=== PATIENT | male | born 1945 | race Caucasian/White ===

== ENCOUNTER 2022-03-21 15:00 | Observation (INO) ==
[2022-03-21] MEDS ORDERED: Iopamidol - 370 500 ML MLS IVP ONE (19:00)
[2022-03-21 19:28] LABS: Basophils # 0.1 K/mcL (0.0-0.2); Basophils % 0.7 %; Eosinophils % 0.3 %; Hematocrit 48.7 % (37.5-50.1); Hemoglobin 16.7 g/dL (12.9-16.9); Immature Granulocytes % 0.5 % (0-4); Lymphocytes # 1.3 K/mcL (0.6-4.6); Mean Corpuscular HGB Conc 34.3 g/dL (31.6-35.5); Mean Corpuscular Hemoglobin 33.8 pg (28.0-33.3); Mean Corpuscular Volume 98.6 fL (83.0-100.0); Mean Platelet Volume 10.1 fL (9.4-12.4); Monocytes % 7.9 %; Neutrophils # 9.6 K/mcL (1.6-8.9); Platelet Count 285 K/mcL (140-400); Red Blood Count 4.94 M/mcL (4.19-5.50); Red Cell Distribution Width 12.6 % (11.5-14.5); Segmented Neutrophils % 79.6 %; White Blood Count 12.1 K/mcL (4.3-11.1)
[2022-03-21 22:06] LABS: BUN/Creatinine Ratio 19 (6-26); Blood Urea Nitrogen 15 mg/dL (8-23); Calcium 9.1 mg/dL (8.6-10.3); Carbon Dioxide 18 mEq/L (23-29); Chloride 106 mEq/L (98-107); Glucose 89 mg/dL (70-105); Osmolality,Calculated 278 (280-300); Potassium 5.8 mEq/L (3.5-5.1); Sodium 134 mEq/L (136-145); Troponin I < 0.03 ng/mL (< 0.04)
[2022-03-21] MEDS ORDERED: Famotidine 20 MG/2 ML VIAL IVP ONE (23:59)
[2022-03-22] MEDS ORDERED: Famotidine 20 MG/2 ML VIAL IVP ONE (00:20)
[2022-03-22 00:28] LABS: INR 1.1; Prothrombin Time 11.9 Seconds (9.4-12.1)
[2022-03-22 01:43] LABS: Alanine Aminotransferase 11 Units/L (7-52); Albumin 3.3 g/dL (3.5-5.7); Albumin/Globulin Ratio 1.2 (1.1-2.2); Alkaline Phosphatase 65 Units/L (34-104); Aspartate Amino Transferase 23 Units/L (13-39); Bilirubin,Indirect 0.5 mg/dL (0.0-1.0); Bilirubin,Total 0.5 mg/dL (0.3-1.0); Globulin 2.7 g/dL (2.4-3.5); Lipase 37 Units/L (11-82)
[2022-03-22] MEDS ORDERED: Naloxone 0.4 MG/ML INJ IVP PRN (06:05)
[2022-03-22] MEDS ORDERED: Ondansetron ODT 4 MG TAB.RAPDIS SL PRN (06:05)
[2022-03-22] MEDS ORDERED: Dextrose Gel 15 GM/37.5 ML TUBE PO PRN ×2 (06:09)
[2022-03-22] MEDS ORDERED: *HR* Dextrose 50 % in Water (Syg) 50 ML SYRINGE IVP PRN (06:09)
[2022-03-22] MEDS ORDERED: D5% in Water 1,000 ML IVC PRN (06:09)
[2022-03-22] MEDS ORDERED: 0.9 % Sodium Chloride 1,000 ML IVC SCH (06:15)
[2022-03-22] MEDS ORDERED: *HR* LORazepam 1 MG TABLET PO PRN (06:47)
[2022-03-22] MEDS ORDERED: *HR* LORazepam 2 MG/ML VIAL IVP PRN ×2 (06:47)
[2022-03-22] MEDS ORDERED: Pantoprazole 40 MG VIAL IVP ONE (06:48)
[2022-03-22] MEDS ORDERED: Saliva Stimulant 44.3ml BOTTLE PO PRN (06:48)
[2022-03-22 07:24] LABS: Basophils # 0.1 K/mcL (0.0-0.2); Basophils % 0.9 %; Eosinophils # 0.2 K/mcL (0.0-0.6); Eosinophils % 1.8 %; Hematocrit 44.3 % (37.5-50.1); Hemoglobin 15.3 g/dL (12.9-16.9); Immature Granulocytes % 0.6 % (0-4); Lymphocytes # 1.7 K/mcL (0.6-4.6); Lymphocytes % 18.7 %; Mean Corpuscular HGB Conc 34.5 g/dL (31.6-35.5); Mean Corpuscular Hemoglobin 33.5 pg (28.0-33.3); Mean Corpuscular Volume 96.9 fL (83.0-100.0); Mean Platelet Volume 9.5 fL (9.4-12.4); Monocytes # 0.9 K/mcL (0.0-1.3); Monocytes % 9.6 %; Neutrophils # 6.2 K/mcL (1.6-8.9); Platelet Count 262 K/mcL (140-400); Red Blood Count 4.57 M/mcL (4.19-5.50); Red Cell Distribution Width 12.4 % (11.5-14.5); Segmented Neutrophils % 68.4 %
[2022-03-22] MEDS ORDERED: Ipratropium/Albuterol Neb 3 ML IH PRN (07:28)
[2022-03-22 07:59] LABS: Ethanol < 10 mg/dL (Less than 10); Phosphorous 3.8 mg/dL (2.7-4.5)
[2022-03-22] MEDS: Chlorhexidine Rinse 15 ML MOUTHWASH MM SCH ×2 (09:00→21:28)
[2022-03-22] MEDS: Nicotine 21 MG PATCH.TD24 TD SCH (09:00)
[2022-03-22 09:01] LABS: Albumin 3.7 g/dL (3.5-5.7); Albumin/Globulin Ratio 1.5 (1.1-2.2); Bilirubin,Total 0.6 mg/dL (0.3-1.0); Calcium 9.1 mg/dL (8.6-10.3); Globulin 2.5 g/dL (2.4-3.5); Magnesium 1.7 mg/dL (1.6-2.6); Potassium 3.8 mEq/L (3.5-5.1); Total Protein 6.2 g/dL (6.4-8.9)
[2022-03-22] MEDS ORDERED: *HR* Propofol 200 MG/20 ML VIAL IVP ONE (09:34)
[2022-03-22] MEDS ORDERED: Simethicone 40 MG/0.6 ML MLS ONE (09:36)
[2022-03-22 11:13] LABS: INR 1.1; Prothrombin Time 11.9 Seconds (9.4-12.1)
[2022-03-22 11:16] LABS: Activated Partial Thrombo Time 33.4 Seconds (26.0-36.0)
[2022-03-22 11:56] LABS: Amphetamine Screen,Urine Negative ng/mL (Cutoff=1000); Barbiturate Screen,Urine Negative ng/mL (Cutoff=200); Benzodiazepines Screen,Urine Negative ng/mL (Cutoff=200); Cannabinoid Screen,Urine Negative ng/mL (Cutoff = 50); Cocaine Screen,Urine Negative ng/mL (Cutoff= 300); Opiate Screen,Urine Negative ng/mL (Cutoff=300); Phencyclidine Screen,Urine Negative ng/mL (Cutoff=25)
[2022-03-22] MEDS ORDERED: Lidocaine HCL 4 ML Topical Solution (Laryng-O-Jet Kit Sterile Pak) TP ONE (12:32)
[2022-03-22] MEDS ORDERED: SUMAtriptan succinate 50 MG TABLET PO PRN (17:00)
[2022-03-22] MEDS ORDERED: Pantoprazole 40 MG VIAL IVP SCH (18:00)
[2022-03-22] MEDS ORDERED: Thiamine (B-1) 100 MG, Folic Acid 1 MG, MVI, adult with vitamin K 10 ML in 0.9 % Sodi... IVPB SCH (18:00)
[2022-03-22] MEDS: Gabapentin 300 MG CAPSULE PO SCH (21:28)
[2022-03-22] MEDS: Sucralfate 1 GM TABLET PO SCH (21:28)
[2022-03-23 07:06] VITALS: BP 128/76; PULSE 76; TEMP 98.1; O2SAT 98
[2022-03-23] MEDS: Chlorhexidine Rinse 15 ML MOUTHWASH MM SCH (08:25)
[2022-03-23] MEDS: Nicotine 21 MG PATCH.TD24 TD SCH (08:25)
[2022-03-23] MEDS: Sucralfate 1 GM TABLET PO SCH (08:25)
[2022-03-23] MEDS: Gabapentin 300 MG CAPSULE PO SCH (08:25)
[2022-03-23] MEDS ORDERED: Finasteride 5 MG TABLET PO SCH (09:00)
[2022-03-23] MEDS ORDERED: hydroCHLOROthiazide 25 MG TABLET PO SCH (09:00)
== END 2022-03-23 10:40 | disposition home or self-care (01) ==
LOC: EMEROOARM 15:00 → 4WAOSI 15:00 → SUATTDRO 03-22 06:10 → 4WAOSI 03-22 06:14
PROVIDERS: ADMIT Internal Medicine; ATTEND Hospitalist